=== PATIENT | female | born 1960 | race Caucasian/White ===

== ENCOUNTER → 2022-02-09 11:16 | Outpatient (CLI) | payer OTHER, SELFPAY ==
--- NOTE | ~2022-02-09 | US_ITS ---
EXAMINATION: US thyroid DATE: 02/09/2022 11:27 INDICATION: Nontoxic single thyroid nodule TECHNIQUE: Multiple ultrasound images of the thyroid were obtained. COMPARISON: None. FINDINGS: The right thyroid lobe measures 5.5 x 2 0.1, 0.5 cm. The left thyroid lobe measures 3.6 x 1.2 x 1.0 cm. At the inferior right thyroid there is a 2.5 cm wider than tall solid isoechoic nodule with keri h margins and without echogenic foci (TI-RADS 3, mildly suspicious , FNA if >=2.5 cm, annual followup is >=1.5 cm). There is normal echotexture, echogenicity and vascular flow throughout the thyroid gla nd. IMPRESSION: 1. 2.5 cm TI RADS 3 right thyroid nodule for which ultrasound-guided biopsy would be recommended. Reviewed, dictated and finalized at location A. [place] VISUAL MERCHANDISER IMPRESSION: 1. 2.5 cm TI RADS 3 right thyroid nodule for which ultrasound-guided biopsy wou ld be recommended.
== END ==
PROVIDERS: PCP Family Medicine; Visit Provider Family Medicine
DX: E04.1 Nontoxic single thyroid nodule (principal)
CPT/HCPCS: 76536

== ENCOUNTER → 2022-02-16 09:47 | Outpatient (CLI) | payer OTHER, SELFPAY ==
--- NOTE | ~2022-02-16 | US_ITS ---
EXAMINATION: US pelvic complete w TV DATE: 02/16/2022 10:20 INDICATION: Postmenopausal bleeding Comparison:Ultrasound dated 02/16/2022 TECHNIQUE: Multiple transabdominal and endovaginal sonographic images of the pelvis performed. FINDINGS: The uterus measures 6.8 x 2.9 x 3.4 cm. The endometrial complex measures 1.2 cm. The right ovary measures 2.1 x 1.4 x 2.4 cm and the left ovary is not visualized. There is no free fluid in the pelvis. There are no abnormal masses seen on either side. IMPRESSION: 1. Thickened endomtrial complex. The differential diagnosis includes endometrial hyperplasia, polyp a nd carcinoma. Biopsy is recommended. Reviewed, dictated and finalized at location A. T DOUGH MIXER IMPRESSION: 1. Thickened endomtrial complex. The differential diagnosis includes endometria l hyperplasia, polyp and carcinoma. Biopsy is recommended.
== END ==
PROVIDERS: PCP Family Medicine
DX: N95.0 Postmenopausal bleeding (principal); R93.89 Abnormal findings on diagnostic imaging of other specified body structures
CPT/HCPCS: 76830; 76856

== ENCOUNTER 2022-03-24 09:02 | Outpatient (CLI) | payer OTHER, SELFPAY ==
--- NOTE | ~2022-03-24 | US_ITS ---
EXAMINATION: US FNA w image guidance DATE: 03/24/2022 10:06 INDICATION: Nontoxic single thyroid nodule. TECHNIQUE: The procedure and its benefits and risks were discussed with the patient. Risks specifically discusse d included bleeding. The patient verbalized understanding of the risks and agreed to proceed. The nec k was prepped and draped in the usual sterile manner. 1% lidocaine was used for local anesthesia. 6 passes were made with a 25G needle into the lesion under ultrasound guidance. There were no immedia te complications. FINDINGS: Grayscale ultrasound images demonstrate needles advanced into a 2.5 cm nodule in right thyroid lobe f or biopsy. IMPRESSION: 1. Ultrasound-guided fine needle aspiration of a right thyroid nodule. Reviewed, dictated and finalized at location A. OPERATOR HELPER
== END 2022-03-24 09:03 | disposition home or self-care (01) ==
PROVIDERS: PCP Family Medicine; Visit Provider Otolaryngology
DX: E04.1 Nontoxic single thyroid nodule (principal)
CPT/HCPCS: 10005; 88173; 88305; 88307

== ENCOUNTER 2024-02-14 11:44 | Outpatient (CLI) | payer OTHER, SELFPAY ==
--- NOTE | ~2024-02-14 | MM_ITS ---
EXAMINATION: MM screening gabriella BI w doris HISTORY: Screening TECHNIQUE: Craniocaudal and mediolateral oblique 3-D tomosynthesis images were obtained and synthetic 2-D images were generated. CAD analysis was submitted and interpreted. COMPARISON: No prior studies for comparison. BREAST PARENCHYMAL COMPOSITION: Not dense: There are scattered areas of fibroglandular density. FINDINGS: There are asymmetries in the lower outer quadrant of the right breast, middle-posterior dep th. No mammographic evidence for malignancy in the left breast. IMPRESSION: 1. Right breast asymmetries. 2. Recommend comparison to previous outside mammograms. BI-RADS Category 0: Incomplete: Needs additional imaging evaluation. Reviewed, dictated and finalized at location B. BILITY REPRESENTATIVE
== END 2024-02-14 11:45 | disposition home or self-care (01) ==
DX: Z12.31 Encounter for screening mammogram for malignant neoplasm of breast (principal)
CPT/HCPCS: 77063; 77067

== ENCOUNTER 2024-03-05 10:58 | Outpatient (CLI) | payer OTHER, SELFPAY | END 2024-03-05 10:59 | disposition home or self-care (01) | PROVIDERS: PCP Family Medicine; Visit Provider Nurse Practitioner Family | DX: R55 Syncope and collapse (principal) | CPT/HCPCS: 93242 ==

== ENCOUNTER 2024-05-23 09:53 | Outpatient (CLI) | payer OTHER, SELFPAY ==
--- NOTE | ~2024-05-23 | MM_ITS ---
EXAMINATION: MM diagnostic gabriella RT w doris HISTORY: Right breast asymmetry TECHNIQUE: Additional 3-D tomosynthesis images of the right breast were performed and synthetic 2-D i mages were generated. CAD analysis was submitted and interpreted. COMPARISON: 02/14/2024, 05/23/2018 BREAST PARENCHYMAL COMPOSITION:Not Dense. There are scattered areas of fibroglandular density. FINDINGS: Right breast asymmetry effaces with spot compression, and is relatively unchanged since 201 9. No suspicious mass lesion or distortion are evident. No suspicious microcalcification. IMPRESSION: No mammographic evidence for malignancy. BI-RADS Category 1: Negative Reviewed, dictated and finalized at location . ECTRIC PRESS OPERATOR
== END 2024-05-23 09:54 | disposition home or self-care (01) ==
LOC: MICIMG 09:53
PROVIDERS: PCP Family Medicine
DX: N64.89 Other specified disorders of breast (principal)
CPT/HCPCS: 77061; 77065; G0279

== ENCOUNTER 2025-03-05 07:52 | Outpatient (CLI) | payer MEDICARE, SELFPAY ==
--- OUTSIDE RECORDS SUMMARY | 2025-03-05 07:56 | XMS_ITS | Clinical Summary ---
Author Organization [facility] Address [address] Attn: Epic Prelude ADT AURELIA CASTELLON JAYLEEN [address] Care Team Providers Care Crown Ironer Name Role Phone Unavailable Primary Care Provider Unavailabl e Allergies No known active allergies Immunizations Immunization Administration Dates Next Due Influenza Vaccine Split 3+ Yrs IM 03/31/2012 Family History Medical History Relation Name Comments High Cholesterol Brother Heart Disease Father High Cholesterol Father High Cholesterol Mother Diabetes Paternal Grandmother Breast Cancer Neg Hx Ovarian Cancer Neg Hx Relation Name Status Comments Brother Father Mother Paternal Grandmother Social History Tobacco Use Types Packs/Day Years Used Date Smoking Tobacco: Never Alcohol Use Standard Drinks/Week Comments Not Asked 0 (1 standard drink = 0.6 oz pur e alcohol) Comments Unknown Sex and Gender Information Value Date Recorded Sex Assigned at Not on file Legal Sex Female 9:49 PM CDT Gender Identity Not on file Sexual Orientation Not on file Plan of Treatment Health Maintenance Due Date Last Done Comments DTAP/TDAP/TD VACCINES (1 - Tdap) 08/05/1978 COLORECTAL SCREENING 08/05/2004 Colorectal Cancer Screening 08/05/2004 FIT-DNA Q 3 years 08/05/2004 FIT/FOBT Q 1 year 08/05/2004 Flex Sig/CT Colonography Q 5 years 08/05/2004 PNEUMOCOCCAL VACCINE 50+ YEA RS (1 of 1 - PCV) 08/05/2009 ZOSTER VACCINE (1 of 2) 08/05/2009 BREAST CANCER SCREENING 01/06/2013 01/07/2012, 12/16 OSTEOPOROSIS SCREENING 08/05/2024 12/16/2010, 2010 INFLUENZA VACCINE (#1) 2024 03/31/2012 RSV VACCINE (60+ or ) (1 - 1-dose 75+ series) 08/05/2034 Procedures Procedure Name Priority Date/Time Associated Diagnosis Comments MAMMO SCREEN BILAT W OR WO CAD Routine 01/07/2012 10:08 AM CDT Other screening mammogram XR DEXA BONE DENSITY AXIAL 1 OR MORE SITES Routine 12/16/2010 9:07 AM CDT Special screening for osteoporosis from Last 3 Months or Most Recently Relevant to Health Maintenance Results * MAMMO SCREEN BILAT W OR WO CAD (01/07/2012 10:08 AM CDT) Anatomical Region Laterality Modality Breast Bilateral Other Narrative 01/11/2012 7:13 AM CDT Bilateral Mammogram Reason for Exam: Screening Comparison: Comparison is made with prior exam(s). Findings: Bilateral CC and MLO views were obtained. This examination was reviewed with the aid of a computer-aided detection system(CAD). The breast tissue density is average. No significant new findings since the prior mammogram(s). Procedure Note Gama Ortiz MD - 05/20/2022 Bilateral Mammogram Reason for Exam: Screening Comparison: Comparison is made with prior exam(s). Findings: Bilateral CC and MLO views were obtained. This examination was reviewed with the aid of a computer-aided detection system(CAD). The breast tissue density is average. No significant new findings since the prior mammogram(s). Anuradha Batres DO MAMMO ORDERABLES Final R esult * XR DEXA BONE DENSITY AXIAL 1 OR MORE SITES (12/16/2010 9:07 AM CDT) Anatomical Region Laterality Modality Other Anuradha Batres DO DIAGNOSTIC IMAGING ORDER RENETTA Final Result from Last 3 Months or Most Recently Relevant to Health Maintenance
--- OUTSIDE RECORDS SUMMARY | 2025-03-05 07:56 | XMS_ITS | Patient Health Record ---
Author Organization [facility] Address [address] [place] [address] Care Team Providers Care Radiation Control Specialist Name Role Phone Solo Pereyra Primary Care Provider [phone] Reason For Referral No Information Medications Medication SIG (Take, Route, Frequency, Duration) Notes Start Date End Date Status progesterone 100 mg 1 cap(s) orally once a day (at bedtime) Active estradiol 0.5 mg 1 tab(s) orally once a day Active Esomeprazole Magnesium 40 mg 1 cap(s) orally once a day 30 min before food; Duration: 30 day(s) 06/27/2017 Active Social History Tobacco Use: Social History Observation Description Date Details (start date - stop date) Never Smoker NA - NA Tobacco Use: Question Answer Notes Smoking Status never smoker Alcohol Audit-C: Question Answer Notes Did you have a drink contain ing alcohol in the past year? Yes How often did you have a dri nk containing alcohol in the past year? Monthly or less (1 point) How many drinks did you have on a typical day when you were drinking in the past year? 1 or 2 (0 points) Points 1 Interpretations Negative Problems Problem Type SNOMED Code ICD Code Onset Dates Problem Status W/U Status Risk Notes Problem Hyperlipidemia (73959830) Other hyperlipidemia (E78.4) Active confirmed Problem Gastroesophageal reflux disease (869735897) Gastroesophageal reflux disease, esophagitis presence not specified (K21.9) Active confirmed Plan Of Treatment Future Test Test Name Order Date Comp Metabolic Panel 06/29/2017 Lipid Panel (no Ratios) 06/29/2017 Thyroid Stimulating Hormone (TSH) 2017 CBC - WITH AUTO DIFF 06/29/2017 Insurance Providers Payer Name Payer Address Payer Phone Subscriber Number Group Number Insured Name Patient Relationship to Insured Coverage Start Date Coverage End Date [facility] Shared Serives [address] [address] [place] [address] [id number] JESSIKA WRIGHT Self - patient is the insured 8 Medical (General) History Medical History History ICD Code High Cholesterol Surgical History Surgery Date(Month/Year) Tubal 91 Natural Childbirths 86,87,88,91 Hospitalization History Reason Date(Month/Year) See above
--- OUTSIDE RECORDS SUMMARY | 2025-03-05 07:56 | XMS_ITS | Encounter Summary ---
Author Organization [facility] Address [address] [place] [address] Care Team Providers Care Golf Ball Marker Name Role Phone Unavailable Primary Care Provider Unavailabl e Reason for Referral * Outpatient Services (Routine) - Closed Specialty Diagnoses / Procedures Referred By Dhruv davidson Referred To Contact Radiology Diagnoses Other screening mammogram Procedures MAMMO DIGITAL SCREEN BILAT Anuradha Batres DO NO ADDRESS ON FILE [facility] [place] [address] [place] [address] Phone: tel: fax: Referral ID Status Reason Start Date Expiration Date Visits Re quested Visits Authorized [id number] Closed 01/04/2012 01/03/2013 2 2 Encounter Details Date Type Department Care Team (Latest Contact Info) Description 01/04/2012 Ancillary Orders [facility] Centralized Scheduling [address] [place] [address] Anuradha Batres DO NO ADDRESS ON FILE Other screening mammogram Social History Tobacco Use Types Packs/Day Years Used Date Smoking Tobacco: Never Alcohol Use Standard Drinks/Week Comments Not Asked 0 (1 standard drink = 0.6 oz pur e alcohol) Comments No Sex and Gender Information Value Date Recorded Sex Assigned at Not on file 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 Findings: Bilateral CC and MLO views were obtained. This examination was reviewed with the aid of a computer-aided detection system(CAD). The breast tissue density is average. No significant new findings since the prior mammogram(s). Procedure Note Gama Ortiz MD - 01/11/2012 Bilateral Mammogram Reason for Exam: Screening Comparison: Comparison is made with prior exam(s). Findings: Bilateral CC and MLO views were obtained. This examination was reviewed with the aid of a computer-aided detectionsystem(CAD). The breast tissue density is average. No significant new findings since the prior mammogram(s). us Anuradha Batres DO MAMMO ORDERABLES Final R esult documented in this encounter Visit Diagnoses Diagnosis Other screening mammogram Other screening mammogram documented in this encounter
--- OUTSIDE RECORDS SUMMARY | 2025-03-05 07:56 | XMS_ITS | Clinical Summary ---
Author Organization [facility] [address] Address [address] [place] [address] Phone Care Team Providers Care Extract Puller Name Role Phone Eduard Muir MD Primary Care Provider [phone] Allergies No known active allergies Medications traMADoL (ULTRAM) 50 mg tabletIndication s:Pain Take 1 tablet (50 mg total) by mouth every 6 (six) hours as needed for pain 4 Active omeprazole (PriLOSEC) 20 mg capsuleIndicatio ns:Stress Ulcer Prophylaxis,acid reflux Take 1 capsule (20 mg total) by mouth every morning Active cyclobenzaprine (FLEXERIL) 5 mg tablet Take 1 tablet (5 mg total) by mouth 3 (three) times a day as needed for muscle spasms for muscle spasms. Hasn't had to use 4 Active prednisoLONE acetate (PRED FORTE) 1 % ophthalmic suspensionIndica tions:post-op Administer 1 drop into the right eye 2 (two) times a day and then decrease as directed 5 mL 1 4 Active progesterone (PROMETRIUM) 100 mg capsuleIndicatio ns:hormone replacement Take 1 capsule (100 mg total) by mouth nightly 90 capsule 3 5 12/22/19 26 Active estradioL (ESTRACE) 1 mg tablet Take 1 tablet (1 mg total) by mouth daily 90 tablet 3 5 Active Active Problems Problem Noted Date Diagnosed Date Combined forms of age-related cataract of left e ye 02/07/2024 Combined forms of age-related cataract of right eye 01/03/2024 Combined forms of age-related cataract of both e yes 12/29/2023 COVID-19 11/19/2020 Overview (12/29/2023): REGEN COV 11/20/20 Hx of cholecystectomy 12/12/2019 Right upper quadrant abdominal pain 12/12/2019 Menopausal vasomotor syndrome 03/29/2018 Low back pain 01/29/2010 Sciatic neuritis 01/29/2010 Encounters Date Type Department Care Team Description 12/28/2024 Results Follow-Up [address] [address] Simin Dumont DO Pap and HPV, reflex to HPV Genotypes 12/21/2024 9:30 AM CDT Office Visit [facility] [address] [place] [address] Simin Dumont DO Encounter for annual routine gynecological examination (Primary Dx); Encounter for screening mammogram for malignant neoplasm of breast; Vasomotor symptoms due to menopause; Screening for malignant neoplasm of cervix 12/21/2024 Orders Only [facility] [address] [place] [address] Simin Dumont DO Screening mammogram, encounter for (Primary Dx) 12/20/2024 Telephone [facility] [address] [place] [address] Simin Dumont DO Appointment Reminder Call from Last 3 Months Immunizations Immunization Administration Dates Next Due Influenza, Trivalent, IM (MDV) 03/31/2012 Surgical History Surgery Date Site/Laterality Comments CHOLECYSTECTOMY 03/21/2019 - 03/20/2020 TUBAL LIGATION 03/21/1990 - 03/20/1991 COLONOSCOPY last one 2013 CATARACT EXTRACTION W/ INTRAOCULAR LENS IMPLANT 01/20/2024 Bilateral OD 01-20-2024, OS 02-24-2024 Medical History Medical History Date Comments PONV (postoperative nausea and vomiting) cataract 01/20/2024 Family History Medical History Relation Name Comments Anesthesia problems Neg Hx Social History Tobacco Use Types Packs/Day Years Used Date Smoking Tobacco: Never Passive Smoke Exposure: Past Smokeless Tobacco: Never Tobacco Cessation:Counseling Given: Not Answered AUDIT-C Answer Date Recorded Q1: How often do you have a drink containing alc ohol? Monthly or less 02/24/2024 Q2: How many drinks containi ng alcohol do you have on a typical day when you are drinking? 1 or 2 02/24/2024 Q3: How often do you have si x or more drinks on one occasion? Never 02/24/2024 Personal Safety Answer Date Recorded Have you ever been in or are you currently in a harmful physical or emotional relationship or is someone making you feel afraid or unsafe? 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 Gender Identity Not on file Sexual Orientation Not on file Obstetrics History Para Term AB IAB SAB Ectopic Multiple Livin g Live Births 4 4 4 0 0 0 0 0 1 5 5 Date Outcome GA Total Labor Labor/2nd/3rd Weight Sex Type Anes PTL Luiza A1 A5 Name Clin 1985 Term 39w 0d 3.345 kg (7 lb 6 oz) M Vag-S pont None N Living 1986 Term 39w 0d 3.232 kg (7 lb 2 oz) F Vag-S pont N Living 1987 Term 39w 0d 3.657 kg (8 lb 1 oz) M Vag-S pont N Living 1990 Term 37w 0d 3.232 kg (7 lb 2 oz) M Vag-S pont Y Living 1990 Term 37w 0d 2.892 kg (6 lb 6 oz) F Vag-S pont Y Living Last Filed Vital Signs Vital Sign Reading Time Taken Comments Blood Pressure 126/76 12/21/2024 9:32 AM CDT Pulse 83 02/24/2024 11:20 AM [employer]ED [employer]AL DELIV[employer] SYSTEM Temperature 36.7 C (98.1 F) 02/24/2024 11:00 AM [employer] DELIV[employer] SYSTEM Respiratory Rate 22 02/24/2024 11:20 AM [employer]AL DELIV[employer] SYSTEM Oxygen Saturation 98% 02/24/2024 11:20 AM [employer]AL DELIV[employer] SYSTEM Inhaled Oxygen Concentration - - Weight 52.6 kg (116 lb) 12/21/2024 9:32 AM CDT Height 165.1 cm (5' 5) 12/21/2024 9:32 AM CDT Body Mass Index 19.3 12/21/2024 9:32 AM CDT Plan of Treatment Health Maintenance Due Date Last Done Comments Colon Cancer Screening-Colonoscopy 1960 Depression Screening 1960 Hepatitis C Screening 1960 DTaP/Tdap/Td Vaccine (1 - Tdap) 08/05/1970 Hepatitis B Screening 08/05/1977 Pneumococcal vaccine 65+ (1 of 1 - PCV) 08/05/2009 Zoster Vaccine (1 of 2) 08/05/2009 Osteoporosis Screening-Bone Density Scan 12/16/2012 12/16/2010, 12/16/2010 Breast Cancer Screening-Mammogram 01/06/2013 012, 12/16/2010 Influenza Vaccine (#1) 2024 03/31/2012 Well Visit 65+ 12/20/2024 12/21/2023, 04/2022, 11/05/2021 Fall Risk Assessment 02/23/2025 02/24/2024 Cervical Cancer Screening 12/21/20252024, 11/05/2021, 12/09/2010 Medical Devices Implanted Type Area Orchid Hand Device Identifier Shelf Expiration Date Model / Serial / Lot [employer] Lens Iol Tecnis Smplcty 1-Pc Clr [place] 19.0 Diopter [id number] - [id number] - [id number] Implanted:Qty: 1 on 01/20/2024 by Paty Mcfarland MD PhD at [facility] Right: Eye [employer] [id number] 03/08/2026 [id number] / [id number] / [employer] Lens Iol Monofocal Anterior Biconvex Optic Single Piece Tecnis Simplicity 6.0x13.0 +19.5d Hydrophobic Acrylic [id number] - [id number] - [id number] Implanted:Qty: 1 on 02/24/2024 by Paty Mcfarland MD PhD at [facility] Left: Eye [employer] [id number] 04/06/2026 [id number] / [id number] / Procedures Procedure Name Priority Date/Time Associated Diagnosis Comments PAP AND HPV, REFLEX TO HPV GENOTYPES Routine 12/21/2024 10:19 AM CDT Screening for malignant neoplasm of cervix from Last 3 Months Results * Pap and HPV, reflex to HPV Genotypes (12/21/2024 10:19 AM CDT) CLINICAL INFORMATION: [facility] Comment:LIQUID-BASED PAP DORIS T WITH HIGH RI LMP [facility] Comment:N/A Previous Pap [facility] Comment:NONE GIVEN Prev. Bx [facility] Comment:NONE GIVEN SOURCE: [facility] Comment:Cervix, Endocervix Pap, specimen adequacy [facility] Comment: Satisfactory for evaluation. Endocervical/transformation zone component present. Age and/or menstrual status not provided HPV interp [facility] Comment: Cytology Results: Negative for intraepithelial lesion or malignancy. COMMENTS [facility] Comment: This Pap test has been evaluated with the ThinPrep(R) Imaging System. Ethylene Plant Helper Que [facility] Comment: LMT, CT(ASCP) CT Screening Location: [facility], [facility] [place] [address] CLIA: [id number] Slide preparation performed at: [facility], [address] [place] [address], [id number] CLIA: [id number] Comment [facility] Comment: EXPLANATORY NOTE: The Pap is a screening test for cervical cancer. It is not a diagnostic test and is subject to false negative and false positive results. It is most reliable when a satisfactory sample, regularly obtained, is submitted with relevant clinical findings and history, and when the Pap result is evaluated along with historic and current clinical information. Human papillomavirus DNA, High Risk E6/E7 Not Detected NOT DETECTED [facility] Comment: Not Detected High Risk HPV types (16,18,31,33,35,39,45,51,52, 56,58,59,66,68) were not detected. Other HPV types which cause anogenital lesions may be present. The significance of the other types of HPV in malignant processes has not been established. Methodology: Real Time PCR Thin prep-Endocervica l 12/21/2024 10:19 AM CDT 12/24/2024 3:26 AM CDT Simin Dumont DO LAB CYTOLOGY ORDERABLES Final Result [facility] [address] [place] [address] [facility] [address] [place] [address] from Last 3 Months Insurance [facility] [employer] P[facility] Address: [address] [address] [place] [address] [facility] MEDICARE ADVANTAGE [facility] Address: [address] [address] [place] [address] [employer] PPO [facility] H[facility]/PPO Address: [address] [address] Care Teams Extract Puller Relationship Specialty Start Date End Date Eduard Muir MD PCP - General Family Practice 01/31/24
--- OUTSIDE RECORDS SUMMARY | 2025-03-05 07:56 | XMS_ITS | Clinical Summary ---
Author Organization [facility] Address [address] [place] [address] Care Team Providers Care Spray Painter Helper Name Role Phone Lyn Lock MD Unavailable [phone] Source Comments [facility],non-owned Affiliates and Associated Physician Practices is amultiple site organization consisting of ambulatory clinics and hospital sitesin [place], [place], [place]. This disclosure is being madepursuant to the Care Everywhere program and may not contain all information available regarding this patient. Last updated 17.[facility] [employer] Allergies No known active allergies Medications * Be aware that medications may not be up to date on this document. Alwaysverify current medications with the patient. estradiol-levono rgestrel (CLIMARA PRO) 0.045-0.015 MG/DAY patch Apply 1 Patch to skin every 7 days. 4 Patch 13 10/27/2009 Active Carisoprodol (SOMA) 250 MG TABS Take 250 mg by mouth 2 times daily as needed. 12 Tab 01/29/2010 Active Active Problems Problem Noted Date Diagnosed Date Low back pain 01/29/2010 Sciatic neuritis 01/29/2010 Menopause Overview (10/28/2009): 49 years old, HRT since 2007 Family History Medical History Relation Name Comments Hypercholesterolemia Brother CAD (Coronary Artery Disease) Father Hypercholesterolemia Father Hypercholesterolemia Mother Diabetes Paternal Grandmother Osteoporosis Neg Hx Relation Name Status Comments Brother Father Alive Mother Alive Paternal Grandmother Social History Tobacco Use Types Packs/Day Years Used Date Smoking Tobacco: Never Smokeless Tobacco: Never Alcohol Use Standard Drinks/Week Comments Yes 0 (1 standard drink = 0.6 oz pur e alcohol) Comments No Sex and Gender Information Value Date Recorded Sex Assigned at Not on file Legal Sex Female 5:12 AM MERCHANDISE BUYER Gender Identity Not on file Sexual Orientation Not on file 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 Not on file Not on file Not on file Last Filed Vital Signs Vital Sign Reading Time Taken Comments Blood Pressure 140/70 01/29/2010 1:05 PM MERCHANDISE BUYER Pulse 88 01/29/2010 1:05 PM MERCHANDISE BUYER Temperature - - Respiratory Rate 16 01/29/2010 1:05 PM MERCHANDISE BUYER Oxygen Saturation 98% 01/29/2010 1:05 PM MERCHANDISE BUYER Inhaled Oxygen Concentration - - Weight 62.1 kg (137 lb) 01/29/2010 1:05 PM MERCHANDISE BUYER Height 166.4 cm (5' 5.5) 01/29/2010 1:05 PM MERCHANDISE BUYER Body Mass Index 22.45 01/29/2010 1:05 PM MERCHANDISE BUYER Plan of Treatment Health Maintenance Due Date Last Done Comments BONE DENSITY TESTING 1959 COLOGUARD (AGES 45-75) - COLON CA SCREENING 1959 COLON MONITORING 1959 COLONOSCOPY - COLON CA SCREENING 1959 CT COLONOGRAPHY - COLON CA SCREENING 1959 Colorectal Cancer Screening 1959 FIT - COLON CA SCREENING 1959 FLEX SIG - COLON CA SCREENING 1959 MAMMOGRAM 1959 HIV SCREENING 08/05/1974 HEPATITIS C SCREENING 08/01/1977 DTAP/TDAP/TD VACCINES (1 - Tdap) 08/05/1978 PNEUMOCOCCAL VACCINE 50+ (1 of 1 - PCV) 08/05/2009 ZOSTER VACCINE (1 of 2) 08/05/2009 LIPID TESTING 10/29/2014 10/29/2009, 03/21/2007 DEPRESSION SCREENING 03/21/2024 COVID-19 VACCINE (1 - 2024-2 6 season) 2024 INFLUENZA VACCINE (#1) 2024 Respiratory Syncytial Virus (RSV) Vaccine Pt: or over 60 yrs (1 - 1-dose 75+ series) 08/05/2034 Cervical Cancer Screening Discontinued PAP SMEAR Discontinued 10/27/2009 PAP with HPV Discontinued 10/27/2009 HEPATITIS B VACCINE Aged Out No longe r eligible based on patient's age to complete this topic HIB VACCINE Aged Out No longer eligi ble based on patient's age to complete this topic HPV VACCINE Aged Out No longer eligi ble based on patient's age to complete this topic MENINGOCOCCAL (Group B) VACCINE SHARED DECISION-MAKING Aged Out No longer eligible based on patient's age to complete this topic MENINGOCOCCAL GROUPS A/C/Y/W VACCINE Aged Out No longer eligible based on patient's age to complete this topic Procedures Procedure Name Priority Date/Time Associated Diagnosis Comments LIPID PROFILE W LDL/HDL RATIO Routine 10/29/2009 Screening Cholesterol Level PAP SMEAR IG HPV HR Routine 10/27/2009 5:49 PM CDT Routine Gynecological Examination from Last 3 Months or Most Recently Relevant to Health Maintenance Results * LIPID PROFILE W LDL/HDL (PO REF LAB) (10/29/2009) BLOOD SPECIMEN / Unknown us Lyn Lock MD LAB - CHEMISTRY ORDERABLES F inal Result NONSSM RESULT SCAN * PAP SMEAR IG HPV HR (PO REF LAB) (10/27/2009 5:49 PM CDT) Diagnosis [facility] ACCOUNT BILL Comment:NEGATIVE FOR INTRAEP ITHELIAL LESION AND MALIGNANCY. Specimen Adequacy [facility] ACCOUNT BILL Comment: Satisfactory for evaluation. Endocervical and/or squamous metaplastic cells (endocervical component) are present. Clinician Provided ICD9 [facility] ACCOUNT BILL Comment: V72.31 ; Routine gynecological examination V76.12 ; Other screening mammogram V77.91 ; Screening for lipoid disorders V77.99 ; Other and unspecified endocrine, nutritional, metabolic, and immunity disorders V77.0 ; Screening for thyroid disorder V77.1 ; Screening for diabetes mellitus V81.2 ; Screening for other and unspecified cardiovascular conditions V82.81 ; Special screening for osteoporosis Performed by [facility] ACCOUNT BILL Comment:Jay Baum, Cytot echnologist (ASCP) Comment . [facility] ACCOUNT BILL Note [facility] ACCOUNT BILL Comment: The Pap smear is a screening test designed to aid in the detection of premalignant and malignant conditions of the uterine cervix. It is not a diagnostic procedure and should not be used as the sole means of detecting cervical cancer. Both false-positive and false-negative reports do occur. . IGLBP CPT Code Automation [facility] ACCOUNT BILL Comment: This liquid based ThinPrep(R) pap test was screened with the use of an image guided system. Human papillomavirus High Risk Negative Negative [facility] ACCOUNT BILL Comment: This high-risk HPV test detects thirteen high-risk types (16/18/31/33/35/39/45/51/52/56/58/59/68) without differentiation. . MICROSCOPIC CYTOLOGIC EXAMINATION OF SMEAR OF SPECIMEN FROM FEMALE GENITAL TRACT PREPARED USING PAPANICOLAOU TECHNIQUE / Unknown 10/27/2009 5:49 PM CDT 10/29/2009 1:32 AM CDT Narrative [facility] ACCOUNT BILL - 11/03/2009 4:13 PM CDT Source.............Endocervical No. of containers..01 CYTYC Thin Prep Vial Resulting Agency Comment [facility] [address] [id number] Lyn Lock MD LAB - PATHOLOGY/CYTOLOGY ORD ERABLES Final Result [facility] ACCOUNT BILL [address] [place] [address] from Last 3 Months or Most Recently Relevant to Health [place] [address] [address]LEZ [id number] Care Teams Spray Painter Helper Relationship Specialty Start Date End Date Lyn Lock MD PCP - KELECHI 01/26/08
--- OUTSIDE RECORDS SUMMARY | 2025-03-05 07:56 | XMS_ITS | Clinical Summary ---
Author Organization [email or web address] Address [address] [place] [address] Care Team Providers Care Outer Diameter Grinder Name Role Phone Unavailable Primary Care Provider Unavailabl e Allergies No known active allergies Medications HYDROcodone-acet aminophen (VICODIN) 5-500 mg Oral tablet Take 0.5-1 Tabs by mouth every 4 hours as needed for Pain, Moderate. 10 Tab 0 2 Active omeprazole (PRILOSEC) 20 mg Oral CpDR Take 1 Cap by mouth daily. 30 Cap 11 2 Active progesterone micronized (PROMETRIUM) 100 mg Oral Cap Take 2 Caps by mouth daily at bedtime. 30 Cap 12 3 Active Estradiol (ESTROGEL) 1.25 gram/actuation Transdermal GlPm Apply 1 Each to skin as directed daily. 1 pump to arm each day 50 Gram 1 3 Active Active Problems No known active problems Immunizations Immunization Administration Dates Next Due Influenza [...] on file Legal Sex Female 12:51 PM OUTSIDE SOLAR SALES CONSULTANT Gender Identity Not on file Sexual Orientation Not on file Occupation Industry Job Start Date Job End Date Not on file Not on file Not on file Not on file Last Filed Vital Signs Vital Sign Reading Time Taken Comments Blood Pressure 120/69 06/07/2012 9:36 AM CDT Pulse 76 02/21/2012 8:35 AM OUTSIDE SOLAR SALES CONSULTANT Temperature 36.9 C (98.5 F) 02/21/2012 8:35 AM OUTSIDE SOLAR SALES CONSULTANT Respiratory Rate 16 02/21/2012 8:35 AM OUTSIDE SOLAR SALES CONSULTANT Oxygen Saturation - - Inhaled Oxygen Concentration - - Weight 57.2 kg (126 lb) 06/07/2012 9:36 AM CDT Height 165.1 cm (5' 5) 06/07/2012 9:36 AM CDT Body Mass Index 20.97 06/07/2012 9:36 AM CDT Plan of Treatment Health Maintenance Due Date Last Done Comments DTAP/TDAP/TD VACCINES (1 - Tdap) 08/05/1978 FIT-DNA Q 3 years 08/05/2004 FIT/FOBT Q 1 year 08/05/2004 Flex Sig/CT Colonography Q 5 years 08/05/2004 PNEUMOCOCCAL VACCINE 50+ YEA RS (1 of 1 - PCV) 08/05/2009 ZOSTER VACCINE (1 of 2) 08/05/2009 BREAST CANCER SCREENING 01/06/2013 01/07/2012, 12/16 COLORECTAL SCREENING 01/19/2021 01/19/2011 (Declined ) Colorectal Cancer Screening 01/19/2021 OSTEOPOROSIS SCREENING 08/05/2024 12/16/2010 INFLUENZA VACCINE (#1) 2024 03/31/2012 RSV VACCINE [...] Relevant to Health Maintenance Results * MAMMO DIGITAL SCREEN BILAT (01/07/2012 [...] OR MORE SITES (12/16/2010 9:07 AM CDT) T-SCORE FEMUR (LEFT) T-SCORE FEMUR (RIGHT) T-SCORE FEMUR >=-0.99 T-SCORE SPINE >=-0.99 T-SCORE HIP (LEFT) T-SCORE HIP (RIGHT) T-SCORE HIP >=-0.99 Anatomical Region Laterality Modality Computed Radiogr aphy Anuradha Batres DO DIAGNOSTIC IMAGING ORDER [place] Final Result from Last 3 Months or Most Recently Relevant to Health Maintenance Insurance [facility] [address] [id number] [facility]
--- OUTSIDE RECORDS SUMMARY | 2025-03-05 07:56 | XMS_ITS | Encounter Summary ---
[facility] Address [address] [place] [address] Phone Care Team Providers Care Java Architect Name Role Phone No, Physician Primary Care Provider [phone] Eduard Muir MD Primary Care Provider [phone] Encounter Details Date Type Department Care Team ([facility] [address] Contact Info) Description 02/16/2022 Orders Only [facility] [address] [place] [address] Scanning, Provider Social History Tobacco Use Types Packs/Day Years Used Date Smoking Tobacco: Never Smokeless Tobacco: Never Comments No Sex and Gender Information Value Date Recorded Sex Assigned at Not on file Legal Sex Female 3:44 PM ADMITTING MANAGER Gender Identity Not on file Sexual Orientation Not on file documented as of this encounter Plan of Treatment Not on file documented as of this encounter Procedures Procedure Name Priority Date/Time Associated Diagnosis Comments SCAN - RADIOLOGY/IMAGING 02/16/2022 documented in this encounter Results * SCAN - RADIOLOGY/IMAGING (02/16/2022) Anatomical Region Laterality Modality Other us Provider Scanning Final Result documented in this encounter Visit Diagnoses Not on filedocumented in this encounter Care Teams Java Architect Relationship Specialty Start Date End Date No, Physician PCP - General 11/03/21 01/30/24 Eduard Muir MD PCP - General Family Practice 01/31/24 documented as of this encounter
== END 2025-03-05 07:53 | disposition home or self-care (01) ==
LOC: ANHBWCAUD 07:53
PROVIDERS: PCP Family Medicine; Visit Provider Otolaryngology
DX: H90.3 Sensorineural hearing loss, bilateral (principal); H93.13 Tinnitus, bilateral
CPT/HCPCS: 92557; 92567